=== PATIENT | female | born 1940 | race Caucasian/White ===

== ENCOUNTER 2020-02-20 09:00 | Emergency (ER) | payer OTHER ==
[~2020-02-20] VITALS: Ht 167.6 cm; Wt 58.1 kg
[~2020-02-20 09:00] MED LIST: ACET325 PO; CALACE667G PO; CALC667; CALCIUM 600 +1 EAC3 PO; CELE200; CELE200 PO; CODACE30; CODACE30 PO; K-Tab10 MEQ PO; KEPPRA; KEPPRA XR750 MG PO; KETO10 PO; LANS30EC PO; LEVFLO500 PO; LIDO5TP TOP; LISI5 PO; LOSA25 PO; MICRO K; Norco 5-325 Ta1 EACH PO; OMEP20ER PO; OXYACE5T PO; POTCHL20ER PO; POWDERLAX238 GM PO; PRAV20 PO; PROLIA60 MG/1 ML SQ; SPIR25 PO
[2020-02-20] MEDS ORDERED: Percocet 7.5-31 EACH PO (10:37)
== END 2020-02-20 11:20 | disposition home or self-care (01) ==
LOC: ER 09:00
DX: M48.56XA Collapsed vertebra, not elsewhere classified, lumbar region, initial encounter for fracture (principal); Z88.6 Allergy status to analgesic agent; Z88.7 Allergy status to serum and vaccine; Z86.73 Personal history of transient ischemic attack (TIA), and cerebral infarction without residual deficits; Z79.899 Other long term (current) drug therapy
CPT/HCPCS: 72100; 96374; 96375; 99284-25; J1170; J2405

== ENCOUNTER 2020-02-23 11:18 | Emergency (ER) | payer OTHER ==
[~2020-02-23] VITALS: Ht 167.6 cm; Wt 68.0 kg
[~2020-02-23 11:18] MED LIST changes: +Percocet 7.5-31 EACH PO
[2020-02-23 11:46] LABS: BASOPHILS ABSOLUTE AUTO 0.03 K/mm3 (0.00-0.23); BASOPHILS PERCENT AUTO 0 % (0-2); EOSINOPHILS PERCENT AUTO 0 % (0-6); Hematocrit 46.3 % (33.0-51.0); Hemoglobin 14.7 g/dL (11.5-16.0); IMMATURE GRAN ABSOLUTE AUTO 0.06 K/mm3 (0.00-0.10); IMMATURE GRAN PERCENT AUTO 1 % (0-1); LYMPHOCYTES ABSOLUTE AUTO 0.11 K/mm3 (0.84-5.20); LYMPHOCYTES PERCENT AUTO 1 % (21-46); MONOCYTES ABSOLUTE AUTO 0.11 K/mm3 (0.16-1.47); MONOCYTES PERCENT AUTO 1 % (4-13); Mean Corpuscular HGB 28.1 pg (26.0-34.0); Mean Corpuscular HGB Conc 31.7 g/dL (31.5-36.5); Mean Corpuscular Volume 89 fL (80-100); Mean Platelet Volume 8.9 fL (9.1-12.4); NEUTROPHILS ABSOLUTE AUTO 10.19 K/mm3 (1.96-9.15); NEUTROPHILS PERCENT AUTO 97 % (41-73); Platelet Count 194 K/mm3 (150-400); RDW Coefficient Variation 15.1 % (11.7-14.2); RDW Standard Deviation 49.1 fL (35.1-46.3); Red Blood Cell Count 5.23 M/mm3 (3.80-5.20)
[2020-02-23 12:03] LABS: Alanine Aminotransfer (ALT/SGP 148 U/L (12-78); Albumin, Blood 3.1 g/dL (3.4-5.0); Albumin/Globulin Ratio 0.8 (0.8-1.8); Alk Phos 327 U/L (50-136); Anion Gap 13 mmol/L (6-16); Aspartate Aminotrans (AST/SGOT 310 U/L (12-37); Bilirubin, Total 5.1 mg/dL (0.1-1.0); Blood Urea Nitrogen 16 mg/dL (8-24); CO2, Blood 19 mmol/L (21-32); Calcium, Blood 9.2 mg/dL (8.5-10.1); Chloride, Blood 107 mmol/L (98-108); Globulin, Blood 3.9 g/dL (2.2-4.0); Glomerular Filtration Rate >60 (60-); Glucose, Blood 146 mg/dL (70-99); Sodium, Blood 139 mmol/L (136-145)
[2020-02-23 12:34] LABS: Source, Urine Catheter
[2020-02-23 12:43] LABS: Appearance, Urine Clear (Clear); Blood, Urine 2+ (Neg); Color, Urine Yellow (P-Yellow); Glucose Qualitative, Urine Neg (Neg); Ketones, Urine 4+ (Neg); Leukocyte Esterase, Urine Neg (Neg); Nitrite, Urine Neg (Neg); Protein, Urine 1+ (Neg); Specific Gravity, Urine 1.015 (1.003-1.022); Urobilinogen, Urine 4+ (Normal)
[2020-02-23 12:51] LABS: Bacteria Not Seen /hpf; Bilirubin, Urine 1+ (Neg); Squamous Epithelial Cells Rare /hpf (Few); White Blood Cells, Urine Not Seen /hpf (0-5)
[2020-02-23 13:39] LABS: Free Thyroxine 1.86 ng/dL (0.70-1.60); Thyroid Stimulating Hormone 0.316 uIU/mL (0.360-4.800)
== END 2020-02-23 17:30 | disposition short-term general hospital (02) ==
LOC: ER 11:18
PROVIDERS: Emergency Medicine
DX: A41.9 Sepsis, unspecified organism (principal); R41.82 Altered mental status, unspecified; E86.0 Dehydration; E87.6 Hypokalemia; I10 Essential (primary) hypertension; Z20.828 Contact with and (suspected) exposure to other viral communicable diseases; Z88.6 Allergy status to analgesic agent; Z88.7 Allergy status to serum and vaccine; Z79.899 Other long term (current) drug therapy
CPT/HCPCS: 36415; 51702; 71045; 76705; 80053; 81001; 83605; 84439; 84443; 84484; 85025; 87040; 87077; 87186; 93005; 93010; 96361-59; 96365-59; 96366-59; 96367-59; 96375-59; 99285-25; J0692; J2270; J2405; J3370; J3475; J3480; J7030; U0003

== ENCOUNTER → 2020-05-16 | Outpatient (CLI) | payer OTHER ==
[~2020-05-16] MED LIST changes: +ASCO500 PO; +CYAN1000I SC; +ELIQUIS5 MG PO; +FERSU300 PO; -KEPPRA XR750 MG PO; +Keppra750 MG PO; +NIFE30ER PO; +PANT40 PO; +VITAMIN D31000 UNI1 PO
[2020-05-16 15:52] LABS: BASOPHILS ABSOLUTE AUTO 0.06 K/mm3 (0.00-0.23); BASOPHILS PERCENT AUTO 1 % (0-2); EOSINOPHILS ABSOLUTE AUTO 0.14 K/mm3 (0.00-0.68); EOSINOPHILS PERCENT AUTO 2 % (0-6); Hemoglobin 8.8 g/dL (11.5-16.0); IMMATURE GRAN ABSOLUTE AUTO 0.02 K/mm3 (0.00-0.10); IMMATURE GRAN PERCENT AUTO 0 % (0-1); LYMPHOCYTES ABSOLUTE AUTO 1.79 K/mm3 (0.84-5.20); LYMPHOCYTES PERCENT AUTO 26 % (21-46); MONOCYTES ABSOLUTE AUTO 0.45 K/mm3 (0.16-1.47); MONOCYTES PERCENT AUTO 6 % (4-13); Mean Corpuscular HGB 23.2 pg (26.0-34.0); Mean Corpuscular HGB Conc 29.3 g/dL (31.5-36.5); Mean Corpuscular Volume 79 fL (80-100); Mean Platelet Volume 9.4 fL (9.1-12.4); NEUTROPHILS ABSOLUTE AUTO 4.55 K/mm3 (1.96-9.15); NEUTROPHILS PERCENT AUTO 65 % (41-73); Platelet Count 443 K/mm3 (150-400); RDW Coefficient Variation 17.8 % (11.7-14.2); RDW Standard Deviation 49.4 fL (35.1-46.3); White Blood Cell Count 7.01 K/mm3 (4.00-11.30)
== END | disposition home or self-care (01) ==
LOC: LAB 14:10 → LAB SHORT 14:10
PROVIDERS: Internal Medicine
DX: I26.99 Other pulmonary embolism without acute cor pulmonale (principal); K75.0 Abscess of liver
CPT/HCPCS: 85025

== ENCOUNTER → 2020-05-25 | Outpatient (CLI) | payer OTHER ==
[2020-05-25 20:38] LABS: Alanine Aminotransfer (ALT/SGP 11 U/L (12-78); Albumin, Blood 3.1 g/dL (3.4-5.0); Albumin/Globulin Ratio 0.9 (0.8-1.8); Alk Phos 87 U/L (50-136); Anion Gap 4 mmol/L (6-16); Aspartate Aminotrans (AST/SGOT 9 U/L (12-37); Bilirubin, Total 0.3 mg/dL (0.1-1.0); Blood Urea Nitrogen 9 mg/dL (8-24); Bun/Creatinine Ratio 19.2 (12.0-20.0); CO2, Blood 27 mmol/L (21-32); Calcium, Blood 9.4 mg/dL (8.5-10.1); Chloride, Blood 111 mmol/L (98-108); Creatinine, Blood 0.47 mg/dL (0.40-1.00); Globulin, Blood 3.4 g/dL (2.2-4.0); Glomerular Filtration Rate >60 (60-); Glucose, Blood 94 mg/dL (70-99); Potassium, Blood 3.3 mmol/L (3.5-5.5); Sodium, Blood 142 mmol/L (136-145); Total Protein, Blood 6.5 g/dL (6.4-8.2)
== END | disposition home or self-care (01) ==
LOC: LAB SHORT 15:01 → LAB 15:01
PROVIDERS: Internal Medicine
DX: E53.8 Deficiency of other specified B group vitamins (principal); K75.0 Abscess of liver; E61.1 Iron deficiency; I10 Essential (primary) hypertension; I26.99 Other pulmonary embolism without acute cor pulmonale
CPT/HCPCS: 80053; 82607; 82728; 82746; 83540; 83550

== ENCOUNTER 2020-07-14 10:12 | Emergency (ER) | payer OTHER ==
[~2020-07-14] VITALS: Ht 167.6 cm; Wt 54.4 kg
[~2020-07-14 10:12] MED LIST changes: -ASCO500 PO; -CYAN1000I SC; -ELIQUIS5 MG PO; -FERSU300 PO; -Keppra750 MG PO; -NIFE30ER PO; -PANT40 PO; -VITAMIN D31000 UNI1 PO
[2020-07-14 10:42] LABS: BASOPHILS ABSOLUTE AUTO 0.05 K/mm3 (0.00-0.23); BASOPHILS PERCENT AUTO 0 % (0-2); EOSINOPHILS ABSOLUTE AUTO 0.15 K/mm3 (0.00-0.68); EOSINOPHILS PERCENT AUTO 1 % (0-6); Hematocrit 40.5 % (33.0-51.0); IMMATURE GRAN ABSOLUTE AUTO 0.08 K/mm3 (0.00-0.10); IMMATURE GRAN PERCENT AUTO 1 % (0-1); LYMPHOCYTES ABSOLUTE AUTO 1.84 K/mm3 (0.84-5.20); LYMPHOCYTES PERCENT AUTO 16 % (21-46); MONOCYTES ABSOLUTE AUTO 0.71 K/mm3 (0.16-1.47); MONOCYTES PERCENT AUTO 6 % (4-13); Mean Corpuscular HGB 23.3 pg (26.0-34.0); Mean Corpuscular HGB Conc 29.6 g/dL (31.5-36.5); Mean Corpuscular Volume 79 fL (80-100); NEUTROPHILS ABSOLUTE AUTO 8.62 K/mm3 (1.96-9.15); NEUTROPHILS PERCENT AUTO 75 % (41-73); Platelet Count 299 K/mm3 (150-400); RDW Coefficient Variation 24.1 % (11.7-14.2); RDW Standard Deviation 67.3 fL (35.1-46.3); Red Blood Cell Count 5.14 M/mm3 (3.80-5.20); White Blood Cell Count 11.45 K/mm3 (4.00-11.30)
[2020-07-14 10:43] LABS: Source, Urine Clean Catch
[2020-07-14 11:03] LABS: Bilirubin, Urine Neg (Neg); Blood, Urine 2+ (Neg); Glucose Qualitative, Urine Neg (Neg); Ketones, Urine Neg (Neg); Leukocyte Esterase, Urine 3+ (Neg); Magnesium, Blood 1.9 mg/dL (1.6-2.4); Nitrite, Urine Neg (Neg); Protein, Urine Neg (Neg); Thyroid Stimulating Hormone 0.791 uIU/mL (0.360-4.800); Troponin I <0.015 ng/mL (0.000-0.040); Urobilinogen, Urine NORM (Normal)
[2020-07-14 11:04] LABS: Alanine Aminotransfer (ALT/SGP 16 U/L (12-78); Albumin/Globulin Ratio 0.8 (0.8-1.8); Alk Phos 100 U/L (50-136); Anion Gap 8 mmol/L (6-16); Aspartate Aminotrans (AST/SGOT 13 U/L (12-37); Bilirubin, Total 0.9 mg/dL (0.1-1.0); Blood Urea Nitrogen 5 mg/dL (8-24); Bun/Creatinine Ratio 7.8 (12.0-20.0); CO2, Blood 30 mmol/L (21-32); Calcium, Blood 9.3 mg/dL (8.5-10.1); Chloride, Blood 108 mmol/L (98-108); Creatinine, Blood 0.64 mg/dL (0.40-1.00); Globulin, Blood 3.8 g/dL (2.2-4.0); Glomerular Filtration Rate >60 (60-); Glucose, Blood 122 mg/dL (70-99); Potassium, Blood 2.4 mmol/L (3.5-5.5); Sodium, Blood 146 mmol/L (136-145); Total Protein, Blood 6.8 g/dL (6.4-8.2)
[2020-07-14 11:09] LABS: Appearance, Urine Hazy (Clear); Color, Urine Pale Yellow (P-Yellow)
[2020-07-14 11:11] LABS: White Blood Cells, Urine 25-50 /hpf (0-5)
[2020-07-14 11:12] LABS: Bacteria Many /hpf; Squamous Epithelial Cells Many /hpf (Few)
[2020-07-14] MEDS ORDERED: FERSU300 PO (12:31)
[2020-07-14] MEDS ORDERED: NIFE30ER PO (12:33)
[2020-07-14] MEDS ORDERED: ASCO500 PO (12:33)
[2020-07-14] MEDS ORDERED: VITAMIN D31000 UNI1 PO (12:34)
[2020-07-14] MEDS ORDERED: Keppra750 MG PO (12:35)
[2020-07-14] MEDS ORDERED: ELIQUIS5 MG PO (12:36)
[2020-07-14] MEDS ORDERED: PANT40 PO (12:36)
[2020-07-14] MEDS ORDERED: ACET325 PO (12:37)
[2020-07-14] MEDS ORDERED: CYAN1000I SC (12:38)
== END 2020-07-14 15:15 | disposition short-term general hospital (02) ==
LOC: ER 10:12
PROVIDERS: Emergency Medicine
DX: S06.360A Traumatic hemorrhage of cerebrum, unspecified, without loss of consciousness, initial encounter (principal); I48.91 Unspecified atrial fibrillation; N39.0 Urinary tract infection, site not specified; E87.6 Hypokalemia; I10 Essential (primary) hypertension; Z91.81 History of falling; Z86.73 Personal history of transient ischemic attack (TIA), and cerebral infarction without residual deficits; Z88.6 Allergy status to analgesic agent; Z88.7 Allergy status to serum and vaccine; Z79.899 Other long term (current) drug therapy; Z79.01 Long term (current) use of anticoagulants; W19.XXXA Unspecified fall, initial encounter
CPT/HCPCS: 36415; 51702; 70450; 71045; 72100; 72131; 80053; 81001; 83605; 83735; 83880; 84443; 84484; 85025; 87077; 87086; 87186; 93005; 93010; 96365; 96366; 96367; 96368; 96376; 99285-25; J0696; J3480

== ENCOUNTER → 2021-11-27 | Outpatient (CLI) | payer OTHER ==
[~2021-11-27] MED LIST changes: +ASCO500 PO; +CYAN1000I SC; +ELIQUIS5 MG PO; +FERSU300 PO; +Keppra750 MG PO; +NIFE30ER PO; +PANT40 PO; +VITAMIN D31000 UNI1 PO
[2021-11-27 12:20] LABS: BASOPHILS ABSOLUTE AUTO 0.06 K/mm3 (0.00-0.23); BASOPHILS PERCENT AUTO 1 % (0-2); EOSINOPHILS ABSOLUTE AUTO 0.12 K/mm3 (0.00-0.68); EOSINOPHILS PERCENT AUTO 2 % (0-6); Hematocrit 46.2 % (33.0-51.0); Hemoglobin 15.3 g/dL (11.5-16.0); IMMATURE GRAN ABSOLUTE AUTO 0.02 K/mm3 (0.00-0.10); IMMATURE GRAN PERCENT AUTO 0 % (0-1); LYMPHOCYTES ABSOLUTE AUTO 1.75 K/mm3 (0.84-5.20); LYMPHOCYTES PERCENT AUTO 26 % (21-46); MONOCYTES ABSOLUTE AUTO 0.55 K/mm3 (0.16-1.47); MONOCYTES PERCENT AUTO 8 % (4-13); Mean Corpuscular HGB 32.1 pg (26.0-34.0); Mean Corpuscular HGB Conc 33.1 g/dL (31.5-36.5); Mean Corpuscular Volume 97 fL (80-100); Mean Platelet Volume 8.8 fL (9.1-12.4); NEUTROPHILS ABSOLUTE AUTO 4.25 K/mm3 (1.96-9.15); NEUTROPHILS PERCENT AUTO 63 % (41-73); Platelet Count 304 K/mm3 (150-400); RDW Coefficient Variation 14.4 % (11.7-14.2); RDW Standard Deviation 50.9 fL (35.1-46.3); Red Blood Cell Count 4.77 M/mm3 (3.80-5.20); White Blood Cell Count 6.75 K/mm3 (4.00-11.30)
[2021-11-27 18:04] LABS: Alanine Aminotransfer (ALT/SGP 13 U/L (12-78); Albumin, Blood 3.3 g/dL (3.4-5.0); Albumin/Globulin Ratio 0.9 (0.8-1.8); Alk Phos 67 U/L (50-136); Anion Gap 6 mmol/L (6-16); Aspartate Aminotrans (AST/SGOT 16 U/L (12-37); Bilirubin, Total 1.1 mg/dL (0.1-1.0); Blood Urea Nitrogen 6 mg/dL (8-24); Bun/Creatinine Ratio 9.9 (12.0-20.0); CHOL/HDL RATIO 4.5; CO2, Blood 25 mmol/L (21-32); Calcium, Blood 10.5 mg/dL (8.5-10.1); Chloride, Blood 110 mmol/L (98-108); Cholesterol 236 mg/dL (50-200); Creatinine, Blood 0.61 mg/dL (0.40-1.00); Globulin, Blood 3.5 g/dL (2.2-4.0); Glomerular Filtration Rate 89 (60-); Glucose, Blood 95 mg/dL (70-99); HDL Cholesterol 53 mg/dL (>39); LDL/HDL RATIO 2.9; Low Density Lipoprotein Chol 152 mg/dL (0-110); Potassium, Blood 3.8 mmol/L (3.5-5.5); Sodium, Blood 141 mmol/L (136-145); Total Protein, Blood 6.8 g/dL (6.4-8.2); Triglycerides 153 mg/dL (30-160); Very Low Density Lipoprot Chol 30 mg/dL (6-32)
== END | disposition home or self-care (01) ==
LOC: LAB SHORT 10:12 → LAB 10:12
PROVIDERS: Internal Medicine
DX: I48.0 Paroxysmal atrial fibrillation (principal); I70.0 Atherosclerosis of aorta; E78.5 Hyperlipidemia, unspecified; I10 Essential (primary) hypertension
CPT/HCPCS: 80053; 80061; 84443; 85025

== ENCOUNTER → 2022-09-10 | Outpatient (CLI) | payer OTHER ==
[2022-09-10 13:08] LABS: BASOPHILS ABSOLUTE AUTO 0.05 K/mm3 (0.00-0.23); BASOPHILS PERCENT AUTO 1 % (0-2); EOSINOPHILS ABSOLUTE AUTO 0.11 K/mm3 (0.00-0.68); EOSINOPHILS PERCENT AUTO 1 % (0-6); IMMATURE GRAN ABSOLUTE AUTO 0.01 K/mm3 (0.00-0.10); IMMATURE GRAN PERCENT AUTO 0 % (0-1); LYMPHOCYTES ABSOLUTE AUTO 2.46 K/mm3 (0.84-5.20); LYMPHOCYTES PERCENT AUTO 32 % (21-46); MONOCYTES ABSOLUTE AUTO 0.63 K/mm3 (0.16-1.47); MONOCYTES PERCENT AUTO 8 % (4-13); Mean Corpuscular HGB 30.9 pg (26.0-34.0); Mean Corpuscular HGB Conc 33.3 g/dL (31.5-36.5); Mean Corpuscular Volume 93 fL (80-100); NEUTROPHILS ABSOLUTE AUTO 4.48 K/mm3 (1.96-9.15); NEUTROPHILS PERCENT AUTO 58 % (41-73); Platelet Count 295 K/mm3 (150-400); RDW Coefficient Variation 13.4 % (11.7-14.2); RDW Standard Deviation 45.8 fL (35.1-46.3); Red Blood Cell Count 5.17 M/mm3 (3.80-5.20); White Blood Cell Count 7.74 K/mm3 (4.00-11.30)
[2022-09-10 15:41] LABS: Alanine Aminotransfer (ALT/SGP 16 U/L (12-78); Albumin, Blood 3.3 g/dL (3.4-5.0); Albumin/Globulin Ratio 0.9 (0.8-1.8); Alk Phos 73 U/L (50-136); Anion Gap 3 mmol/L (6-16); Aspartate Aminotrans (AST/SGOT 15 U/L (12-37); Bilirubin, Total 0.9 mg/dL (0.1-1.0); Blood Urea Nitrogen 11 mg/dL (8-24); Bun/Creatinine Ratio 16.2 (12.0-20.0); CHOL/HDL RATIO 4.7; CO2, Blood 24 mmol/L (21-32); Calcium, Blood 9.7 mg/dL (8.5-10.1); Chloride, Blood 111 mmol/L (98-108); Cholesterol 223 mg/dL (50-200); Creatinine, Blood 0.68 mg/dL (0.40-1.00); Globulin, Blood 3.5 g/dL (2.2-4.0); Glomerular Filtration Rate 86 (60-); Glucose, Blood 98 mg/dL (70-99); HDL Cholesterol 47 mg/dL (>39); LDL/HDL RATIO 3.1; Low Density Lipoprotein Chol 145 mg/dL (0-110); Potassium, Blood 4.4 mmol/L (3.5-5.5); Sodium, Blood 138 mmol/L (136-145); Total Protein, Blood 6.8 g/dL (6.4-8.2); Triglycerides 153 mg/dL (30-160); Very Low Density Lipoprot Chol 30 mg/dL (6-32)
== END | disposition home or self-care (01) ==
LOC: LAB SHORT 10:15 → LAB 10:15
PROVIDERS: Internal Medicine
DX: I26.99 Other pulmonary embolism without acute cor pulmonale (principal); E78.5 Hyperlipidemia, unspecified; E55.9 Vitamin D deficiency, unspecified; I10 Essential (primary) hypertension
CPT/HCPCS: 80053; 80061; 82306; 85025

== ENCOUNTER 2023-04-13 06:55 | Emergency (ER) | payer OTHER ==
[~2023-04-13] VITALS: Ht 165.1 cm; Wt 59.4 kg
[2023-04-13 09:01] LABS: Source, Urine Clean Catch
[2023-04-13 09:08] LABS: Appearance, Urine Clear (Clear); Bilirubin, Urine Neg (Neg); Blood, Urine 1+ (Neg); Color, Urine Yellow (P-Yellow); Glucose Qualitative, Urine Neg (Neg); Ketones, Urine Neg (Neg); Leukocyte Esterase, Urine Neg (Neg); Nitrite, Urine Neg (Neg); Protein, Urine Neg (Neg); Urobilinogen, Urine NORM (Normal)
[2023-04-13 09:20] LABS: Bacteria Few /hpf; Red Blood Cells, Urine 0-2 /hpf (0-2); Squamous Epithelial Cells Few /hpf (Few)
[2023-04-13 11:30] VITALS: BP 123/87
[2023-04-13] MEDS ORDERED: OXYC5 PO (13:34)
[2023-04-13] MEDS ORDERED: ACET500 PO (13:35)
== END 2023-04-13 13:53 | disposition home or self-care (01) ==
LOC: ER 06:55
PROVIDERS: Emergency Medicine
DX: S52.532A Colles' fracture of left radius, initial encounter for closed fracture (principal); S90.32XA Contusion of left foot, initial encounter; S01.112A Laceration without foreign body of left eyelid and periocular area, initial encounter; S52.602A Unspecified fracture of lower end of left ulna, initial encounter for closed fracture; I10 Essential (primary) hypertension; W01.0XXA Fall on same level from slipping, tripping and stumbling without subsequent striking against object, initial encounter; Z88.7 Allergy status to serum and vaccine; Z88.8 Allergy status to other drugs, medicaments and biological substances; Z79.899 Other long term (current) drug therapy; Z79.01 Long term (current) use of anticoagulants; Z86.73 Personal history of transient ischemic attack (TIA), and cerebral infarction without residual deficits
CPT/HCPCS: 12011; 25605; 51701; 70450; 72125; 73100; 73110; 73610; 73630; 81001; 96374; 99152; 99285-25; J2270; J2704; J7030

== ENCOUNTER 2023-04-23 01:30 | Inpatient (IN) | payer OTHER ==
[~2023-04-23] VITALS: Ht 165.1 cm; Wt 59.0 kg
[~2023-04-23 01:30] MED LIST changes: +ACET500 PO; +OXYC5 PO
[2023-04-23 02:54] LABS: BASOPHILS ABSOLUTE AUTO 0.04 K/mm3 (0.00-0.23); BASOPHILS PERCENT AUTO 0 % (0-2); EOSINOPHILS ABSOLUTE AUTO 0.03 K/mm3 (0.00-0.68); EOSINOPHILS PERCENT AUTO 0 % (0-6); Hematocrit 44.6 % (33.0-51.0); Hemoglobin 14.3 g/dL (11.5-16.0); IMMATURE GRAN ABSOLUTE AUTO 0.08 K/mm3 (0.00-0.10); IMMATURE GRAN PERCENT AUTO 1 % (0-1); LYMPHOCYTES ABSOLUTE AUTO 0.86 K/mm3 (0.84-5.20); LYMPHOCYTES PERCENT AUTO 6 % (21-46); MONOCYTES ABSOLUTE AUTO 0.77 K/mm3 (0.16-1.47); MONOCYTES PERCENT AUTO 6 % (4-13); Mean Corpuscular HGB 30.8 pg (26.0-34.0); Mean Corpuscular HGB Conc 32.1 g/dL (31.5-36.5); Mean Corpuscular Volume 96 fL (80-100); Mean Platelet Volume 8.9 fL (9.1-12.4); NEUTROPHILS ABSOLUTE AUTO 11.83 K/mm3 (1.96-9.15); NEUTROPHILS PERCENT AUTO 87 % (41-73); Platelet Count 296 K/mm3 (150-400); RDW Coefficient Variation 13.2 % (11.7-14.2); RDW Standard Deviation 46.5 fL (35.1-46.3); Red Blood Cell Count 4.65 M/mm3 (3.80-5.20); White Blood Cell Count 13.61 K/mm3 (4.00-11.30)
[2023-04-23 03:15] LABS: Albumin, Blood 2.8 g/dL (3.4-5.0); Albumin/Globulin Ratio 0.8 (0.8-1.8); Bilirubin, Total 1.1 mg/dL (0.1-1.0); Bun/Creatinine Ratio 11.8 (12.0-20.0); Calcium, Blood 9.3 mg/dL (8.5-10.1); Creatinine, Blood 0.59 mg/dL (0.40-1.00); Globulin, Blood 3.7 g/dL (2.2-4.0); Total Protein, Blood 6.5 g/dL (6.4-8.2)
[2023-04-23 03:58] LABS: International Normalized Ratio 1.03; Prothrombin Time Results 10.8 Sec (9.7-11.5)
[2023-04-23 05:50] VITALS: BP 133/105
--- NOTE | 2023-04-23 06:47 | NUR ---
PT ARRIVED VIA STRETCHER AT APPROXIMATELY 0540 - PT WITH EXTREME L SIDED HIP PAIN, PRNS GIVEN AVAILABLE. ALERT AND ORIENTED. RATING PAIN 10/10 AND SCREAMING/YELLING OUT AT REST. PT CHANGED AND PUREWIC REPLACED. PULSES PALPABLE ON BOTH RIGHT AND LEFT PT/DP - NOTIFIED DR. MORENO AND PRN ORDERS MODIFIED FOR BETTER PAIN CONTROL. WILL PASS ON TO DAY RN
[2023-04-23 07:25] VITALS: BP 138/99
--- NOTE | 2023-04-23 07:26 | NUR ---
At time of bedside report, pt reported no pain. She was lying on her right side. At this time she is attempting to move her left knee on top of the right knee, still in a right side lying position. She has refused help multiple times, and says that she cannot do it herself. She is now in pain. Pt was strongly encouraged to try and immobilize the leg and stop trying ot move it, especially as it is increasing her pain.
[2023-04-23 08:37] LABS: BASOPHILS ABSOLUTE AUTO 0.04 K/mm3 (0.00-0.23); BASOPHILS PERCENT AUTO 0 % (0-2); EOSINOPHILS ABSOLUTE AUTO 0.01 K/mm3 (0.00-0.68); EOSINOPHILS PERCENT AUTO 0 % (0-6); Hematocrit 47.3 % (33.0-51.0); Hemoglobin 15.7 g/dL (11.5-16.0); IMMATURE GRAN ABSOLUTE AUTO 0.11 K/mm3 (0.00-0.10); IMMATURE GRAN PERCENT AUTO 1 % (0-1); LYMPHOCYTES ABSOLUTE AUTO 1.07 K/mm3 (0.84-5.20); LYMPHOCYTES PERCENT AUTO 7 % (21-46); MONOCYTES PERCENT AUTO 7 % (4-13); Mean Corpuscular HGB 30.9 pg (26.0-34.0); Mean Corpuscular HGB Conc 33.2 g/dL (31.5-36.5); Mean Corpuscular Volume 93 fL (80-100); NEUTROPHILS ABSOLUTE AUTO 13.26 K/mm3 (1.96-9.15); NEUTROPHILS PERCENT AUTO 85 % (41-73); RDW Coefficient Variation 13.2 % (11.7-14.2); RDW Standard Deviation 44.9 fL (35.1-46.3); Red Blood Cell Count 5.08 M/mm3 (3.80-5.20); White Blood Cell Count 15.59 K/mm3 (4.00-11.30)
[2023-04-23 09:06] LABS: Mean Platelet Volume 9.1 fL (9.1-12.4); Platelet Count 292 K/mm3 (150-400)
--- NOTE | 2023-04-23 10:46 | NUR ---
Call to Dr. Hay's cell phone, to confirm receipt of the surgery consultation. Voice message was left. Second call to Manny Porter to request fax of the pt's home medication list. Mortgage Banker said that it was faxed once already; we did not receive it, so it will be faxed again.
[2023-04-23 10:47] LABS: Albumin, Blood 2.9 g/dL (3.4-5.0); Albumin/Globulin Ratio 0.8 (0.8-1.8); Bilirubin, Total 1.5 mg/dL (0.1-1.0); Bun/Creatinine Ratio 13.9 (12.0-20.0); Calcium, Blood 9.2 mg/dL (8.5-10.1); Creatinine, Blood 0.5 mg/dL (0.40-1.00); Globulin, Blood 3.7 g/dL (2.2-4.0); Magnesium, Blood 2.2 mg/dL (1.6-2.4); Potassium, Blood 4.1 mmol/L (3.5-5.5); Total Protein, Blood 6.6 g/dL (6.4-8.2)
--- NOTE | 2023-04-23 10:47 | NUR ---
Per Dr. Collier, procardia to be held until medication list can be confirmed. There is discrepancy between the med list and the pharmacy rx history.
[2023-04-23] MEDS ORDERED: SPIR25 PO (11:01)
[2023-04-23] MEDS ORDERED: METOPROLOL SUCC25 MG PO (11:01)
[2023-04-23 11:31] VITALS: BP 111/71
--- NOTE | 2023-04-23 11:36 | NUR ---
Pt was given IVdilaudid for extreme left hip pain. spo2 86-88% following this; given oxygen at 2 l/min and spo2 improved to 94%. Pt's heart rate also noted 127 bpm; given scheduled Toprol XL at this time. Blood pressure is stable. No dyspnea. Tachypnea noted at 20-24 breaths /minute, but no accessory muscle use, no anxiety nor agitation.
[2023-04-23 13:35] VITALS: BP 140/88
--- NOTE | 2023-04-23 16:15 | NUR ---
Telephone report given to LAURO Garcia. Pt is transferring to surgical unit.
--- NOTE | 2023-04-23 16:59 | NUR ---
TRANSFER: REPORT RECEIVED FROM CONCRETE FOREMAN JEANINE. PT TO UNIT AT ABOUT 1630. PT IS ALERT, ORIENTED X2. WHEN ASKED QUESTIONS PT SLOW TO RESPOND, ABLE TO FOLLOW COMMANDS. PEDAL PULSES +2 BILATERALLY. PT ABLE TO WIGGLE TOES AND FINGERS. SLING AND DRESSING WNL TO L ARM. PUREWICK IN PLACE WITH ATTENDS. LUNGS ARE CLEAR ON ASCULTATION, HAS WET COUGH, NON PRODUCTIVE. PT DAUGHTER, CHELITA CALLED AND GIVEN AN UPDATE ON PT TRANSFER, NEW ROOM NUMBER, AND PLAN. PLAN IS TO ALLOW PT TO EAT DINNER, NPO AT 0000 AND POSSIBLE SURGERY TOMORROW. PT CALL LIGHT IN REACH AND BED ALARM SET FOR SAFETY.
--- NOTE | 2023-04-23 18:05 | NUR ---
NO CHANGE SINCE TRANSFER
--- NOTE | 2023-04-23 18:50 | NUR ---
DR. MONDRAGON IN ROOM AT 1830, PLAN IS FOR NPO AT 0000. PT SLEEPING AND SP02 82% ON RA, 3L O2 APPLIED AND SP02 INCREASED TO 94%. PT STILL HAS WET, WEAK, GURGLING COUGH AT THROAT. HOB ELEVATED AND THIS RN ATTEMPTED TO SUCTION MOUTH, NO DRAINAGE OUT. WILL USE ASPIRATION PRECAUTIONS AND MAKE NOC RN AWARE.
[2023-04-23 19:53] VITALS: BP 136/78
[2023-04-24 05:04] VITALS: BP 148/75
[2023-04-24 05:09] LABS: Hematocrit 41.5 % (33.0-51.0); Hemoglobin 13.4 g/dL (11.5-16.0); Mean Corpuscular HGB Conc 32.3 g/dL (31.5-36.5); Mean Corpuscular Volume 96 fL (80-100); Mean Platelet Volume 9.2 fL (9.1-12.4); Platelet Count 286 K/mm3 (150-400); RDW Coefficient Variation 13.3 % (11.7-14.2); RDW Standard Deviation 47.6 fL (35.1-46.3); Red Blood Cell Count 4.32 M/mm3 (3.80-5.20); White Blood Cell Count 17.11 K/mm3 (4.00-11.30)
--- NOTE | 2023-04-24 05:30 | NUR ---
SHIFT SUMMARY ASSUMED CARE OF PT AT 1900. PT MENTATION HAS BEEN COMING NAD GOING. AT START OF SHIFT PT WAS NOT ANSERING ANY ORIENTATION QUESTIONS, WOULD NOT LOOK AT THIS NURSE AND WOULD YELL IN PAIN. AT AROUND 0300 PT BECAME MORE ALERT BUT STILL UNABLE TO ANSWER ORIENTATION QUESTIONS AND IS STILL CRYING OUT IN PAIN, BUT BLE TO SAY "NO" AND SMALL SENTENCES SUCH "DONT TOUCH ME" AND "PLEASE THAT HURTS". HEART SOUNDS REGULAR, LUNG SOUNDS VERY COURSE. RT CONSULTED AND PT SUCTIONED. SPECIMEN SENT TO LAB. PT HAD NON PRODUCTIVE COUGH AND RATTLE IN THROAT. PT UNABLE TO CLEAR BY HERSELF. ORAL CARE PROVIDED. PT TITRATED FROM 2L NC TO 6L NC. PT L LEG IS TURNED IN TOWARDS HER CENTER. PAINTFUL TO TOUCH. L FINGERS DISCOLERED PURPLE. PT STILL ABLE TO MOVE ALL FINGERS AND TOES. PT ABD IS DISTENDED AND FIRM, ALSO PAINFUL TO TOUCH. PT USED PURWICK DURING THE NOC. PT ONLY HAD 150 CC OUTPUT. HOSPITALIST NOTIFIED AND PLACED ORDERS AFTER REVIEWING CHART.
[2023-04-24 06:11] LABS: Creatinine, Blood 0.53 mg/dL (0.40-1.00); Potassium, Blood 4.2 mmol/L (3.5-5.5)
[2023-04-24 07:22] VITALS: BP 119/75
[2023-04-24 14:20] VITALS: BP 142/54
--- NOTE | 2023-04-24 18:33 | NUR ---
SHIFT SUMMARY A/O X2-3 THROUGHOUT THE SHIFT. BEDREST THROUGHOUT THE SHIFT DUE TO FX. PT REMAINED NPO IN HOPE TO GO TO SURGERY TODAY, PLAN IS NOW FOR SURGERY TOMORROW. PT REQUIRING IV PAIN MEDICATION APPROX Q2H TO MANAGE PAIN. ORAL CARE COMPLETE THROUGHOUT SHIFT. PERWICK SUCTION FOR URINE. 2L NC TO KEEP OXYGEN ABOVE 90% DUE TO NARCOTICS. WILL REPORT TO ONCOMING RN.
[2023-04-24 19:19] VITALS: BP 147/80
--- NOTE | 2023-04-24 22:12 | NUR ---
OXYGENATION PT DESAUTRATING TO 80-82% ON 2L NC. RT CONSULTED FOR PT'S DROP IN O2 SAT. NC TURNED UP TO 6L O2. PT SUCTIONED. ENOURAGED COUGHING & DEEP BREATHING. ORAL CARE PROVIDED TO PT, MOUTH CLEANED THUROUGHLY & MOUTH MOISTURIZER APPLIED LIBERALLY.
--- NOTE | 2023-04-24 23:10 | NUR ---
DR CONSULT CALL MADE TO DR MON[place] DESAT OF PT. O2 SATS DROP TO 82% ON 7L NONREBREATHER. DR ORDERED BNP, BMP, CBC, ABG, 12-LEAD EKG, TELE, WEEL DEEP SUCTIONING PER RT.
--- NOTE | 2023-04-24 23:24 | NUR ---
DR CONSULT DR MONDRAGON AT BEDSIDE. DR ASSESSED PT LLE c INTERNAL FIXATION. DR MANUALLY PULLED PT L LEG TO A MORE "STRAIGHT" POSITION. DR ORDERED PT TO BE PUT ON MANTUAL TRACTION TO AFFECTED EXTREMITY AT 10LBS.
--- NOTE | 2023-04-24 23:29 | NUR ---
PATIENT CARE 3 NURSES AND 1 COMPUTER SYSTEMS SECURITY ADMINISTRATOR AT BEDSIDE TO PUT PT IN TRACTION. RESPIRATORY THERAPY AT BEDSIDE TO ASSESS PATIENT OXYGEN STATUS AND PERFORM ABG. EKG PERFORMED ON PT. PT DID NOT TOLERALE INTERVENTIONS WELL. ALL PHYSCIAL TOUCH TO PT, SHE CRIED OUT "DO NOT TOUCH ME" AND "PLEASE NO, THAT HURTS." PT MEDICATED PER EMAR BEFORE ANY INTERVTIONS PERFORMED. ONCE PT TRACTION WAS COMPLETED, PT TOLERATED FAIR, DOES NOT MOVE LEG. BECAUSE OF 10LB TRACTION, BED CANNOT BE IN LOWEST POSITION. BED ALARM IN PLACE FOR SAFETY.
[2023-04-24 23:38] LABS: BASOPHILS ABSOLUTE AUTO 0.03 K/mm3 (0.00-0.23); BASOPHILS PERCENT AUTO 0 % (0-2); EOSINOPHILS ABSOLUTE AUTO 0.07 K/mm3 (0.00-0.68); EOSINOPHILS PERCENT AUTO 1 % (0-6); Hematocrit 42.8 % (33.0-51.0); Hemoglobin 13.6 g/dL (11.5-16.0); IMMATURE GRAN ABSOLUTE AUTO 0.02 K/mm3 (0.00-0.10); IMMATURE GRAN PERCENT AUTO 0 % (0-1); LYMPHOCYTES ABSOLUTE AUTO 1.26 K/mm3 (0.84-5.20); LYMPHOCYTES PERCENT AUTO 12 % (21-46); MONOCYTES ABSOLUTE AUTO 0.85 K/mm3 (0.16-1.47); MONOCYTES PERCENT AUTO 8 % (4-13); Mean Corpuscular HGB Conc 31.8 g/dL (31.5-36.5); Mean Corpuscular Volume 98 fL (80-100); Mean Platelet Volume 8.6 fL (9.1-12.4); NEUTROPHILS ABSOLUTE AUTO 8.73 K/mm3 (1.96-9.15); NEUTROPHILS PERCENT AUTO 80 % (41-73); Platelet Count 256 K/mm3 (150-400); RDW Coefficient Variation 13.2 % (11.7-14.2); RDW Standard Deviation 47.8 fL (35.1-46.3); Red Blood Cell Count 4.39 M/mm3 (3.80-5.20); White Blood Cell Count 10.96 K/mm3 (4.00-11.30)
[2023-04-24 23:46] LABS: PCO2 Arterial 45.2 mmHg (35-45); PO2 Arterial 70.6 mmHg (80-100); pH Blood Arterial 7.33 (7.35-7.45)
--- NOTE | 2023-04-24 23:48 | NUR ---
DR CONSULT DR BLANTON CALLED THE FRONT DRESK REGUARDING THIS PT. STATED THAT HE DOES NOT FEEL THE PATIENT WILL GO TO SURGERY GIVEN HER CURRENT CONDITION. HE STATED THAT HE FEELS SHE WOULD MORE APPROPRIATE FOR COMFORT CARE. DR ADVISED THIS RN TO CALL THE FAMILY ABOUT THE PATIENT BEING ON COMFORT CARE. ADVISED TO CONTINUE SUCTIONING PT R/T EXCESSIVE SECRETION PRODUCTION. STATED HE WOULD ENTER ORDERS RELATED TO COMFORT CARE.
[2023-04-24 23:57] LABS: Bun/Creatinine Ratio 18.5 (12.0-20.0); Creatinine, Blood 0.43 mg/dL (0.40-1.00); Potassium, Blood 3.7 mmol/L (3.5-5.5)
--- NOTE | 2023-04-25 00:14 | NUR ---
Call to jesus Burger. Confirmed that he is pts medical decision maker and he confirmed. Explained patients declining respiratory status. Confirmed that patient does not wish to be intubated and does not wish to have CPR. Tao confirmed. Explained to Tao, that given her wishes, that the doctor was recommending comfort care. Answered additional questions on comfort measures. Tao agreeable to placing patient on comfort care. Tao states that he just got into town. Relayed to Tao that he was more than welcome to come to the hospital to visit. He stated that he needed to get some rest but if there were any further changes to call him again. Call to Reena, Surgical sporting goods sales manager, to update on phone call. Call to Dr. Torres to update him as well. Dr. Torres to place comfort care orders.
--- NOTE | 2023-04-25 05:14 | NUR ---
SHIFT SUMMARY REFER TO PREVIOUS NOTES FOR PT CONDITION. PT ON COMFORT CARE AT THIS TIME. PT GIVEN 1 DOSE OF 0.5 IV ATIVAN PER EMAR. PT HAS NOT SHOWN SIGNS OF DISTRESS SINCE DOSE. PT IS NO LONGER CALLING OUT IN PAIN. PT NOT RESPONSIVE TO VERBAL STIMULI. PT RESTING WITH EYES CLOSED. RESPIRATIONS ARE SHALLOW, APPROX 28/MIN AT THIS TIME. BED ALARM IN PLACE, WILL REPORT TO DAY RN.
--- NOTE | 2023-04-25 11:45 | NUR ---
Comfort Care Visit Attempted. Pt. is in bed and is not responsive when I enter the room. No family are present. Prayed for the Pt. Will remain available to Pt. and family as needed.
--- NOTE | 2023-04-25 14:50 | NUR ---
SHIFT SUMMARY: COMFORT CARE PATIENT HAS BEEN GIVEN IV DILAUDID AND IV ATIVAN PER EMAR FOR PATIENT COMFORT. SHE HAS BEEN NOT RESPONSIVE TO VERBAL OR PAINFUL STIMULI. SHE HAS HAD HER EYES CLOSED WITH RESPIRATIONS SHALLOW AND ARE APPROX 30/ MIN AT THIS TIME. HER LEFT LEG IS IN BUCKS TRACTION WITH 10 POUNDS. HER LEFT ARM HAS A SPLINT WITH JODI WRAP AND A SLING IN PLACE. SHE IS LAYING IN BED WITH CALL LIGHT IN REACH. PURWICK IN PLACE WITH DARK VINICIO COLORED URINE OUTPUT.
--- NOTE | 2023-04-25 16:03 | NUR ---
PATIENT WAS GIVEN A BED BATH AND ORAL CARE DONE. PATIENT DID NOT OPEN HER EYES OR MAKE ANY NOISE WHEN DOING THE BED BATH OR ORAL CARE. MADELINE CARE WAS ALSO PREFORMED AND A NEW PURWICK WAS PLACED IN WHICH PATIENT STILL DID NOT OPEN HER EYES OR MAKE ANY NOISE. PATIENT IS LAYING IN BED WITH LEGS AND ARMS ELEVATED ON PILLOWS AND CALL LIGHT IN REACH. HER RESPIRATIONS HAVE DECREASED TO APPROX. MID 20'S PER MIN.
--- NOTE | 2023-04-25 18:26 | NUR ---
Pt unresponsive for most part grimaces with turns. pt in bucks traction. Some labored respirations. pt unable to tranfer at this time due to frailty of the injury. plan is to stablize fracture as much as possible and adjust splinting to facilitate transfer.
--- NOTE | 2023-04-25 21:00 | NUR ---
PT PASSED AT 2030, VERIFIED WITH SECOND RN JAYDEN MARTIN. PRIOR TO THIS TIME, THIS RN AND OPEN WINDER JAYDEN HAD BEEN IN ROOM. PT HAD BEEN RESTING IN BED AND APPEARED COMFORTABLE, NO GRIMACING OR MOANING. MELODY BAIRD ALSO REPORTS SHE HAD ROUNDED ON PT JUST BEFORE SHE PASSED. PT TAI WHITE PLACED CALL TO NURSES STATION REQUESTING A RETURN CALL FOR AN UPDATE. WENT INTO ROOM TO ASSESS PT ONCE MORE BEFORE RETURNING CHARU'S CALL AND FOUND THAT PT HAD PASSED. EDUARDO CHRISTOPHER CALLED AND NOTIFIED. NURSING CHIP FRIER LEW NOTIFIED. POST MORTEM CARE DONE. FINAL DISCHARGE CHARTING TO BE COMPLETED BY OPEN WINDER.
--- NOTE | 2023-04-25 21:15 | NUR ---
FAMILY IN ROOM WITH PT AT THIS TIME.
--- NOTE | 2023-04-25 21:29 | NUR ---
FAMILY HAS LEFT. THEY TOOK PT VALUABLE'S, A RING. IT WAS LABELED AND CONFIRMED WITH FAMILY.
--- NOTE | 2023-04-25 21:33 | NUR ---
NOTIFIED HOSPITALIST GURVINDER OCONNELL HAS PASSED AT 2030.
--- NOTE | 2023-04-26 03:33 | NUR ---
[facility] DIRECTORS HAVE PICKED UP PT.WE CONFIRMED WITH NURSING INFORMATION TECHNOLOGY DIRECTOR NO ME NEEDING TO BE NOTIFIED. FAMILY TOOK RING HOME WITH THEM.
== END 2023-04-25 20:30 | DRG 535 ==
LOC: ER 01:30 → SURS 04:28 → PCU 04:28 → SURS 16:19
PROVIDERS: Emergency Medicine; Internal Medicine; Nurse Practitioner Acute Care; ADMIT Student in an Organized Health Care Education/Training Program
DX: S72.142A Displaced intertrochanteric fracture of left femur, initial encounter for closed fracture (principal); J69.0 Pneumonitis due to inhalation of food and vomit; J96.01 Acute respiratory failure with hypoxia; S52.502A Unspecified fracture of the lower end of left radius, initial encounter for closed fracture; S52.602A Unspecified fracture of lower end of left ulna, initial encounter for closed fracture; Z66 Do not resuscitate; Z51.5 Encounter for palliative care; W18.30XA Fall on same level, unspecified, initial encounter; G89.29 Other chronic pain; G43.909 Migraine, unspecified, not intractable, without status migrainosus; R29.6 Repeated falls; G40.909 Epilepsy, unspecified, not intractable, without status epilepticus; I10 Essential (primary) hypertension; M54.9 Dorsalgia, unspecified; S01.112A Laceration without foreign body of left eyelid and periocular area, initial encounter; S90.31XA Contusion of right foot, initial encounter; M81.0 Age-related osteoporosis without current pathological fracture; Z99.81 Dependence on supplemental oxygen; Z88.7 Allergy status to serum and vaccine; Z86.73 Personal history of transient ischemic attack (TIA), and cerebral infarction without residual deficits; Z88.8 Allergy status to other drugs, medicaments and biological substances; Z87.11 Personal history of peptic ulcer disease; Z98.1 Arthrodesis status; Z90.49 Acquired absence of other specified parts of digestive tract; Z98.890 Other specified postprocedural states; Z79.891 Long term (current) use of opiate analgesic; Z79.01 Long term (current) use of anticoagulants; Z79.899 Other long term (current) drug therapy
CPT/HCPCS: 31720; 36415; 36600; 71045; 73100; 73502; 73552; 73560-RT; 74018; 80048; 80053; 82803; 82947; 83735; 83880; 85025; 85027; 85610; 87070; 87077; 87147; 87186; 87205; 93005; 93010; 94640; 94664; 94762; 96374; 96376; 99285-25; A9270; J0295; J1170; J1953; J2060; J3010; J7050; J7120